=== PATIENT | male | born 1960 | race Caucasian/White ===

== ENCOUNTER 2019-12-18 08:22 | Inpatient (IN) ==
--- OUTSIDE RECORDS SUMMARY | 2019-12-18 08:24 | External Medical Summary | Continuity of Care Document ---
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 EMERSON Ambrocio Quantity: 60 Refills: 3 oxyCODONE-Acetaminophen 5-325 MG Oral Ta blet; TAKE 1 TABLET EVERY 4 HOURS NEEDED FOR PAIN. Ross Quantity: 120 Refills: 0 Procedures History of Uvulectomy Status: Completed History of Sinus Surgery Status: Complet ed History of Bronchoscopy (Diagnostic) Sta tus: Completed History of Uvuloplasty Status: Completed History of Palatopharyngoplasty Status: Completed History of Thoracoscopy (Therapeutic) With Total Pulmonary Status: Completed Decortic History of Thoracotomy Status: Completed Immunizations Immunizations not documented Family History Mother Family history of Colon cancer (153.9) (C18.9) Status: Activ e Family history of cerebrovascular accident (V17.1) (Z82.3) S tatus: Active Father Family history of cerebrovascular accident (V17.1) (Z82.3) S tatus: Active Social History - Smoking Status Ex-smoker Plan of Treatment Planned Observations Planned Goals not documented Results No Known Results Results not documented
--- NOTE | 2019-12-18 08:53 | Emergency Department Note ---
ED Visit Note Patient seen and examined in conjunction with Dr. Quinteros. Please see his note for medical decision making. . Resident Activity Tracking Resident Involvement: Resident Care Provided Care Provided: Adult ED
--- NOTE | 2019-12-18 08:54 | Emergency Department Note ---
History of Present Illness General Chief complaint: Chest Pain Stated complaint: CHEST PAIN Time Seen by Provider: 12/18/19 08:28 Source: patient, RN notes reviewed and old records reviewed Mode of arrival: ambulatory Limitations: no limitations History of Present Illness Provider complaint: Chest pain Onset (ago): day(s) 3 Location: chest Radiation: non-radiation Severity: mild Pain Consistency: + constant Maximum Pain Intensity: 1 Current Pain Intensity: 1 Quality: + aching Relieved By: + immobilization Exacerbated By: + movement Associated symptoms: + denies other symptoms; no chest pain, no diaphoresis, no fever/chills and no nausea/vomiting Treatments prior to arrival: none This is a 59-year-old male who presents emergency department complaining of chest pain. The patient reports he woke up this morning complaining of chest pain. The patient reports he does not normally see a physician however with did go to his doctor on Tuesday over not feeling well. He denies being exposed to the virus. He reports no nausea vomiting or diaphoresis with the chest pain. He points to a pinpoint area on his chest. He has not taken anything for the chest pain today. He reports the chest pain is worse when he sits up. He has no other complaints. The patient does smoke. Home Medications Home Medications Medication Instructions Recorded Confirmed Type aspirin [Aspirin Low Dose] 81 mg PO DAILY 12/18/19 12/18/19 History Allergies Allergy/AdvReac Type Severity Reaction Status Date / Time No Known Allergies Allergy Unverified 12/18/19 08:59 Past Med/Surg History Medical History BPH (benign prostatic hyperplasia) Sleep apnea Surgical History History of thoracotomy 2015 - left thorascopy, left thoracotomy with decortication S/P UPPP (uvulopalatopharyngoplasty) Family History Mother Colorectal cancer Father Stroke Social History Preferred Language: Spanish Communication Ability: Effective Composing Machine Operator Required: No Beliefs That Will Affect Care: None Current Living Situation: Significant Other Other Information That Helps Us Care for You: No Feels Safe at Home: Yes Safety Concerns: Feels Safe At This Time Smoking Status: Current every day smoker Tobacco Type: smokeless tobacco ; Cigarettes Per Day: vaping x 8 years, prior smoker 1.5-2ppd x 25 years ; Do You Dip or Chew Tobacco: No ; Hx Alcohol Use: No Hx Substance Use: No Review of Systems A total of 10 systems reviewed and were otherwise negative Physical Exam Vital Signs Vital Signs - 24 hr 12/18/19 08:25 12/18/19 09:06 12/18/19 09:30 Temperature 36.9 C Temperature Source Oral Pulse Rate 75 62 61 Pulse Rate from SpO2 Sensor 61 62 Respiratory Rate 17 17 16 Respiratory Effort / Characteristics Non-Labored Respiratory Depth Normal Respiratory Pattern Regular Blood Pressure 189/119 H 180/102 H 169/100 H Blood Pressure Mean 142 132 127 Blood Pressure Position Sitting Pulse Oximetry 98 97 96 Oxygen Delivery Method Room Air Room Air Room Air Sepsis Recent Fever Within 48 Hours No Sepsis New/Unexplained Change in Mental Status No Sepsis Action Taken by Nursing No Action Required 12/18/19 09:56 12/18/19 10:02 12/18/19 10:30 Temperature Temperature Source Pulse Rate 72 68 63 Pulse Rate from SpO2 Sensor 67 63 Respiratory Rate 27 H 24 27 H Respiratory Effort / Characteristics Respiratory Depth Respiratory Pattern Blood Pressure 155/105 H 174/102 H 178/101 H Blood Pressure Mean 131 114 113 Blood Pressure Position Pulse Oximetry 96 97 Oxygen Delivery Method Sepsis Recent Fever Within 48 Hours Sepsis New/Unexplained Change in Mental Status Sepsis Action Taken by Nursing VITAL SIGNS - Vital signs and nursing notes were reviewed. GENERAL - 59-year-old appearing stated age who is in no acute distress. Communicates well with provider and answers questions appropriately. SKIN - Without rashes. HEAD - NC/AT. EYES - PERRL with EOMI bilaterally. Sclera anicteric. Palpebral conjunctiva pink and moist with no injection noted. EARS - No deformities of external structures noted on gross examination bilaterally. No pain elicited with palpation of the tragus bilaterally. External auditory canals without discharge or otorrhea. Tympanic membranes pearly arrington without retraction or bulging. No fluid or purulent material visualized behind the TM. Handle of malleus, umbo, cone of light, pars tensa/flaccid all easily visualized. NOSE - Midline and without cyanosis. No epistaxis or purulent drainage noted. Septum midline without deviation or septal hematoma noted. MOUTH/OROPHARYNX - Without perioral cyanosis. Buccal mucosa pink and moist and without leukoplakia. Tongue midline with equal elevation of palate bilaterally. No tonsillar hypertrophy, erythema, or exudates noted. dentition noted. NECK - Neck with FROM. Supple to palpation. lymphadenopathy noted. No nuchal rigidity. LUNGS - Chest wall symmetric without accessory muscle use, intercostals retractions, or central cyanosis. Normal vesicular breath sounds CTA B/L. No wheezes, rales, or rhonchi appreciated. CARDIAC - RRR with S1/S2. No murmur, rubs, or gallops appreciated. ABDOMEN - Abdominal contour without pulsations or visible masses. BS normoactive all four quadrants. No tenderness, palpable masses, hepatosplenomegaly, or ascites noted. EXTREMITIES - No clubbing or peripheral cyanosis. No pretibial edema present. +3/5 radial, posterior tibial, and dorsalis pedis pulses palpated throughout. +5/5 strength noted in UE/LE bilaterally. NEUROLOGIC - Cranial nerves II through XII grossly intact. Sensory intact to light touch throughout. Patellar reflexes +2/4. PSYCH - A&Ox3 and cooperates fully with examiner. Pt is very pleasant and interacts well with examiner. Course Administered Medications Amlodipine Besylate (Norvasc) 5 mg PO Q[facility] [place] Stop: 01/17/20 11:59 Last Admin: 12/18/19 12:54 Dose: 5 mg Documented by: [id number] Heparin Sodium (Porcine) (Heparin Sodium (Porcine)) 5,000 units SQ Q8 [facility] Stop: 01/17/20 13:59 Last Admin: 12/18/19 12:55 Dose: 5,000 units Documented by: [id number] Cosigned by: [id number] Lisinopril (Zestril) 10 mg PO QAM [facility] Stop: 01/17/20 11:59 Last Admin: 12/18/19 12:55 Dose: 10 mg Documented by: [id number] Discontinued Medications Amlodipine Besylate (Norvasc) 5 mg PO NOW ONE Stop: 12/18/19 13:14 Last Admin: 12/18/19 14:04 Dose: 5 mg Documented by: [id number] Aspirin (Aspirin) 324 mg PO NOW STA Stop: 12/18/19 09:46 Last Admin: 05/12/20 09:52 Dose: 324 mg Documented by: [id number] Nitroglycerin (Nitrostat) 0.4 mg SL NOW STA Stop: 12/18/19 09:46 Last Admin: 12/18/19 09:51 Dose: 0.4 mg Documented by: [id number] Medical Decision Making Differential Diagnosis Cardiac ischemia, aortic dissection, pulmonary embolism, pneumothorax, pneumonia, pericarditis, myocarditis, esophageal rupture, GERD, cholecystitis, pancreatitis, musculoskeletal, as well as other pathologies. Medical Records Attestation: I reviewed the patient's medical records. Home Medications Current Medication List: was personally reviewed by me Laboratory Data Attestation: I reviewed the patient's lab results. Result diagrams: 12/18/19 09:06 12/18/19 09:06 Lab Results 12/18/19 12/18/19 12/18/19 Range/Units 09:06 09:06 09:06 WBC 5.87 (4.8-10.8) K/uL RBC 5.08 (4.7-6.1) M/uL Hgb 14.9 (14.0-18.0) g/dL Hct 44.1 (42-52) % MCV 86.8 (80-100) fL MCH 29.3 (25-34) pg MCHC 33.8 (32-36) g/dL RDW Std Deviation 41.2 (36.4-46.3) fL RDW Coeff of Jacek 12.9 (11.5-14.5) % Plt Count 185 (130-400) K/uL MPV 10.0 (7.4-10.4) fL Immature Gran % (Auto) 0.5 % Neut % (Auto) 70.5 % Lymph % (Auto) 15.7 % [place] % (Auto) 10.6 % Eos % (Auto) 2.2 % Baso % (Auto) 0.5 % Immature Gran # (Auto) 0.03 H (0.00-0.02) K/uL Neut # (Auto) 4.14 (1.4-6.5) K/uL Lymph # (Auto) 0.92 L (1.2-3.4) K/uL [place] # (Auto) 0.62 H (0.11-0.59) K/uL Eos # (Auto) 0.13 (0-0.5) K/uL Baso # (Auto) 0.03 (0-0.2) K/uL PT (9.0-12.0) Seconds INR (0.9-1.1) APTT (21.0-31.0) Seconds PTT Ratio D-Dimer (0-500) ug/L FEU Sodium 140 (136-145) mmol/L Potassium 4.1 (3.5-5.1) mmol/L Chloride 108 H (98-107) mmol/L Carbon Dioxide 27 (21-32) mmol/L Anion Gap 6.0 (3-11) BUN 15 (7-18) mg/dl Creatinine 1.13 (0.6-1.4) mg/dl Est Cr Clr Drug Dosing 89.1 ml/min Est GFR ( Amer) 82.0 Est GFR (Non-Af Amer) 70.8 BUN/Creatinine Ratio 13.3 (10-20) Glucose 113 H (70-99) mg/dl Calcium 8.7 (8.5-10.1) mg/dl Total Bilirubin 0.9 (0.2-1) mg/dl AST 16 (15-37) U/L ALT 30 (12-78) U/L Alkaline Phosphatase 90 (45-117) U/L Total Creatine Kinase 228 (39-308) U/L CK-MB (CK-2) 4.0 H (0.5-3.6) ng/ml CK/CKMB % Calc 1.8 (0-3.0) Troponin I 0.136 H* (0-0.045) ng/ml Total Protein 6.6 (6.4-8.2) gm/dl Albumin 3.6 (3.4-5.0) gm/dl Globulin 3.0 (2.5-4.0) gm/dl Albumin/Globulin Ratio 1.2 (0.9-2) Lipase 123 (73-393) U/L TSH (0.300-4.500) uIu/ml 12/18/19 12/18/19 12/18/19 Range/Units 09:06 09:07 09:07 WBC (4.8-10.8) K/uL RBC (4.7-6.1) M/uL Hgb (14.0-18.0) g/dL Hct (42-52) % MCV (80-100) fL MCH (25-34) pg MCHC (32-36) g/dL RDW Std Deviation (36.4-46.3) fL RDW Coeff of Jacek (11.5-14.5) % Plt Count (130-400) K/uL MPV (7.4-10.4) fL Immature Gran % (Auto) % Neut % (Auto) % Lymph % (Auto) % [place] % (Auto) % Eos % (Auto) % Baso % (Auto) % Immature Gran # (Auto) (0.00-0.02) K/uL Neut # (Auto) (1.4-6.5) K/uL Lymph # (Auto) (1.2-3.4) K/uL [place] # (Auto) (0.11-0.59) K/uL Eos # (Auto) (0-0.5) K/uL Baso # (Auto) (0-0.2) K/uL PT 10.9 (9.0-12.0) Seconds INR 1.0 (0.9-1.1) APTT 27.6 (21.0-31.0) Seconds PTT Ratio 1.0 D-Dimer 360 (0-500) ug/L FEU Sodium (136-145) mmol/L Potassium (3.5-5.1) mmol/L Chloride (98-107) mmol/L Carbon Dioxide (21-32) mmol/L Anion Gap (3-11) BUN (7-18) mg/dl Creatinine (0.6-1.4) mg/dl Est Cr Clr Drug Dosing ml/min Est GFR ( Amer) Est GFR (Non-Af Amer) BUN/Creatinine Ratio (10-20) Glucose (70-99) mg/dl Calcium (8.5-10.1) mg/dl Total Bilirubin (0.2-1) mg/dl AST (15-37) U/L ALT (12-78) U/L Alkaline Phosphatase (45-117) U/L Total Creatine Kinase (39-308) U/L CK-MB (CK-2) (0.5-3.6) ng/ml CK/CKMB % Calc (0-3.0) Troponin I (0-0.045) ng/ml Total Protein (6.4-8.2) gm/dl Albumin (3.4-5.0) gm/dl Globulin (2.5-4.0) gm/dl Albumin/Globulin Ratio (0.9-2) Lipase (73-393) U/L TSH 2.190 (0.300-4.500) uIu/ml Imaging Data Radiologist's Impression: [place], [place] [phone] XRay Report Patient: CHAYITO VELARDE Admit Date: 12/18/19 MR#: [id number] Address1: [address] [place] [address] Acct ID:[id number] Address2: Date: 1960 [facility] Zip: [place] [address] Age: 59 Location: ED Sex: M Room/Bed: Att Phy: Diagnosis: CHEST PAIN Amy Phy: PCP,NO Service Date: 12/18/19 Fam Phy: Interpreting Phy: Gaston Ortiz Admit Phy: Ordering Phy: Sharon Gusman MD cc: ~ XR chest 1V portable HISTORY: 59 years-old Male L chest pain acute left-sided chest pain COMPARISON: Chest radiographs 12/25/2014 TECHNIQUE: Portable AP view of the chest FINDINGS: Cardiac silhouette is enlarged, unchanged. Blunting of the left costophrenic angle is suggestive of scarring. No pneumothorax, large pleural effusion, overt pulmonary edema or airspace consolidation typical for pneumonia. Degenerative changes of the shoulders and spine. IMPRESSION: Cardiomegaly without acute process. ACT 112: Negative or not required by law. The above report was generated using voice recognition software. It may contain grammatical, syntax or spelling errors. Electronically signed by: Kevin Ortiz M.D. 12/18/2019 9:19 AM Dictated: 12/18/19917 Transcribed: 12/18/19917 ECG Data Attestation: I personally reviewed and interpreted this ECG as follows: Indication: chest pain Rate (beats per minute): 63 Rhythm: normal sinus Findings: + left axis deviation; no ST depression and no ST elevation Comparison ECG Date: from (12/07/2014) Change: no significant change Blood Pressure Blood Pressure Findings: Elevated blood pressure Blood Pressure Disposition: further management by hospitalist OSEI Patton Patient was seen and evaluated as above in room B7. Review was performed of nursing notes and vital signs. I did review pertinent previous visits and patient history. After obtaining a thorough history and physical examination the above work up was performed. This is a 59-year-old male who presents emergency department complaining of chest pain. The patient's EKG is unchanged from previous. He was noted to be extremely hypertensive here in the emergency department and I suspect has had hypertension for quite some time based on his previous EKG. Laboratory work was obtained including a CBC renal profile. The patient was found to have an elevation in his troponin. He was given aspirin as well as nitro for the pain here in the emergency department. I did discuss his case with the hospitalist service who did agree to admit the patient as well as cardiology. Patient is in agreement with the treatment plan. An order was placed for continuous cardiac monitoring. The monitor shows a rate of 60 with Normal Sinus rhythm. The patient was evaluated during the global COVID-19 pandemic, and that diagnosis was suspected/considered upon their initial presentation. Their evaluation, treatment and testing was consistent with current guidelines for patients who present with complaints or symptoms that may be related to COVID- 19. Impression & Plan Chest pain, Hypertension, Elevated troponin Discharge Plan Visit Data *Final* Discharge Date/Time: 12/18/19 11:07 Chief Complaint: Chest Pain Stated Complaint: CHEST PAIN ED Provider: Ryne Quinteros ED Midlevel Provider: Sharon Gusman Discharge Problem: Chest pain, Hypertension, Elevated troponin Patient Disposition: Admitted As Inpatient Discharge Instructions Interventions: ED Discharge Assessment Last Done: 12/18/19 11:07 Discharge Problem: Chest pain Qualifiers: Chest pain type: unspecified Qualified Code(s): R07.9 - Chest pain, unspecified Hypertension Qualifiers: Hypertension type: unspecified Qualified Code(s): I10 - Essential (primary) hypertension
[2019-12-18 09:14] LABS: Basophils # (auto) 0.03 K/uL (0-0.2); Basophils % (auto) 0.5 %; Eosinophils # (auto) 0.13 K/uL (0-0.5); Eosinophils % (auto) 2.2 %; Hematocrit (blood only) 44.1 % (42-52); Hemoglobin 14.9 g/dL (14.0-18.0); Immature Granulocytes # (auto) 0.03 K/uL (0.00-0.02); Immature Granulocytes % (auto) 0.5 %; Lymphocytes # (auto) 0.92 K/uL (1.2-3.4); Lymphocytes % (auto) 15.7 %; Mean Corpuscular Hemoglobin 29.3 pg (25-34); Mean Corpuscular Hgb Conc 33.8 g/dL (32-36); Mean Corpuscular Volume 86.8 fL (80-100); Monocytes # (auto) 0.62 K/uL (0.11-0.59); Monocytes % (auto) 10.6 %; Neutrophils # (auto) 4.14 K/uL (1.4-6.5); Neutrophils % (auto) 70.5 %; Platelet Count 185 K/uL (130-400); RDW Coefficient of Variation 12.9 % (11.5-14.5); RDW Standard Deviation 41.2 fL (36.4-46.3); Red Blood Count 5.08 M/uL (4.7-6.1); White Blood Count 5.87 K/uL (4.8-10.8)
--- NOTE | 2019-12-18 09:21 | XRay Report ---
XR chest 1V portable HISTORY: 59 years-old Male L chest pain acute left-sided chest pain COMPARISON: Chest radiographs 12/25/2014 TECHNIQUE: Portable AP view of the chest FINDINGS: Cardiac silhouette is enlarged, unchanged. Blunting of the left costophrenic angle is suggestive of s carring. No pneumothorax, large pleural effusion, overt pulmonary edema or airspace consolidation typ ical for pneumonia. Degenerative changes of the shoulders and spine. IMPRESSION: Cardiomegaly without acute process. ACT 112: Negative or not required by law. The above report was generated using voice recognition software. It may contain grammatical, syntax o r spelling errors. Electronically signed by: Kevin Ortiz M.D. 12/18/2019 9:19 AM
[2019-12-18 09:30] LABS: Albumin Level 3.6 gm/dl (3.4-5.0); BUN Creatinine Ratio 13.3 (10-20); Calcium 8.7 mg/dl (8.5-10.1); Creatinine Clr Calc Pharmacy 89.1 ml/min; Est GFR (Non-African American) 70.8; Potassium 4.1 mmol/L (3.5-5.1)
[2019-12-18 09:45] LABS: Albumin Globulin Ratio 1.2 (0.9-2); Bilirubin,Total 0.9 mg/dl (0.2-1); Total Protein 6.6 gm/dl (6.4-8.2); Troponin I 0.136 ng/ml (0-0.045)
[2019-12-18] MEDS ORDERED: NITROGLYCERIN SL 0.4 MG/TAB TAB SL STA (09:45)
[2019-12-18] MEDS ORDERED: ASPIRIN CHEW 324 MG PO STA (09:45)
[2019-12-18 09:59] LABS: Partial Thromboplastin Time 27.6 Seconds (21.0-31.0); Prothrombin Time 10.9 Seconds (9.0-12.0)
--- NOTE | 2019-12-18 11:01 | History & Physical Report ---
Date of Service December 18, 2019 Assessment & Plan (1) Chest pain: Pt is 59 y/o M with PMH BPH presented to ER with complaint of chest pain. Patient states this morning woke up at 5:30 AM he then noticed sharp pain to left chest that is non-radiating, aggravated with ROM. Denies SOB, N/V, diaph oresis. In ER pt afebrile, P: 75, BP: 189/119 down to 156/94, R: 17, 98% on RA. Initial troponin: 0.136. EKG sinus rhythm, rate 63, t wave changes, criteria for LVH, compared to EKG in 2015 without significant change R/O ACS. Risk factors: HTN, obesity, tobacco use. DDX: musculoskeletal etiology, HTN, pleurisy, PE -In ER given ASA 342mg and 1 SL nitro without any change in pain -Monitor Vitals -Will add D-dimer -Repeat EKG in am -Will trend troponin -Echo -TSH pending, lipid panel, A1c in AM -aspirin -Nitro prn CP -Will start BP meds for HTN -Cardiology consult, ER contacted risk control representative who recommended admission (2) HTN (hypertension): Does not follow with PCP regularly. Pt had SBP in 140's at last office visit 12/15/19 and was recommended to have labs and return for BP recheck In ER Pt hypertensive -Will start amlodipine, lisinopril -Monitor BP (3) Sleep apnea: S/P Surgery No further follow up. Pt reports snoring -would recommend out patient follow up for consideration of sleep study DVT Prophylaxis -Heparin SQ Full Code PCP - Dr Jarquin, however does not follow regularly Pt was seen and care coordinated with Dr Amezcua. See addendum History of Present Illness Chief Complaint: CP Primary Care Provider: Dr Jarquin Pt is 59 y/o M with PMH BPH presented to ER with complaint of chest pain. Patient states this morning woke up at 5:30 AM he then noticed sharp pain to left chest. Reports decreased to no pain at rest. Patient states noticed pain with the motion of sitting up or lying down and with rotation and sometimes with deep inspiration. Reports pain is very pinpoint location and is nonradiating. Denies any associated shortness of breath, diaphoresis, nausea, vomiting, palpitations. Pt took ASA 81 mg this morning. Reports drank cup of coffee this morning. Patient reports couple days ago did notice that he was a little bit short of breath when he was doing projects at his house. Has not noticed any shortness of breath with activity prior or since. Denies any history of chest pain or history of cardiac problems or testing in the past. Denies injury/trauma, fever/chills, diaphoresis, N/V/D/C, GORDON, dizziness, syncope, vision changes, neck pain, orthopnea, palpitations, cough, sore throat, choking, otalgia, rhinorrhea, abdominal pain, paresthesias, weakness, extremity weakness, extremity edema, rashes, urinary symptoms. FH: Reports brother had "thin wall" of heart Allergies Allergy/AdvReac Type Severity Reaction Status Date / Time No Known Allergies Allergy Unverified 12/18/19 08:59 Home Medications Home Medications Medication Instructions Recorded Confirmed Type aspirin [Aspirin Low Dose] 81 mg PO DAILY 12/18/19 12/18/19 History Past Med/Surg History Medical History (Updated 12/18/19 @ 15:29 by Diallo Green DO) BPH (benign prostatic hyperplasia) Polysubstance abuse history of alcohol and cocaine use. reportedly clean 15 years Sleep apnea Surgical History History of thoracotomy 2015 - left thorascopy, left thoracotomy with decortication S/P UPPP (uvulopalatopharyngoplasty) Family History Mother Colorectal cancer Father Stroke Social History Preferred Language: Georgian Communication Ability: Effective Director Of Archives Required: No Beliefs That Will Affect Care: None Current Living Situation: Significant Other Other Information That Helps Us Care for You: No Feels Safe at Home: Yes Safety Concerns: Feels Safe At This Time Smoking Status: Current every day smoker Tobacco Type: smokeless tobacco ; Cigarettes Per Day: vaping x 8 years, prior smoker 1.5-2ppd x 25 years ; Do You Dip or Chew Tobacco: No ; Hx Alcohol Use: No Hx Substance Use: No Review of Systems Review of Systems: All systems reviewed & are unremarkable except as noted in HPI & below Physical Exam Physical Exam: General: no distress, obese Head: normocephalic, atraumatic Eyes: PERRL, EOM's intact, conjunctiva non-injected, anicteric ENT: normal inspection external ears, nose, mucous membranes moist Neck: supple, trachea midline Lungs: clear, no respiratory distress, no wheezing/rhonchi/rales CV: RRR, no murmur, no pretibial edema Chest wall: no rashes, +tenderness to palpation left medial pectoralis region Abd: normal BS, soft, non-tender Ext: no cyanosis, no calf tenderness Neuro: A&O x 3, no focal deficits noted, normal affect Skin: warm, dry Results & Data Results & Data ([facility]) Vital Signs (Past 12 Hours) Vital Signs Temp Pulse Resp BP Pulse Ox 12/18/19 09:30 61 16 169/100 H 96 12/18/19 09:06 62 17 180/102 H 97 12/18/19 08:25 36.9 C 75 17 189/119 H 98 Laboratory Results Short CBC 12/18/19 Range/Units 09:06 WBC 5.87 (4.8-10.8) K/uL Hgb 14.9 (14.0-18.0) g/dL Hct 44.1 (42-52) % Plt Count 185 (130-400) K/uL BMP 12/18/19 09:06 Sodium 140 Potassium 4.1 Chloride 108 H Carbon Dioxide 27 BUN 15 Creatinine 1.13 Glucose 113 H Calcium 8.7 Cardiac Enzymes 12/18/19 12/18/19 Range/Units 09:06 09:06 Total Creatine Kinase 228 (39-308) U/L CK-MB (CK-2) 4.0 H (0.5-3.6) ng/ml Troponin I 0.136 H* (0-0.045) ng/ml Liver Function 12/18/19 Range/Units 09:06 Total Bilirubin 0.9 (0.2-1) mg/dl AST 16 (15-37) U/L ALT 30 (12-78) U/L Alkaline Phosphatase 90 (45-117) U/L Albumin 3.6 (3.4-5.0) gm/dl Diagnostic Findings CXR: IMPRESSION: Cardiomegaly without acute process. Code Status & VTE Plan VTE Prophylaxis Plan VTE Prophylaxis will be ordered: Yes Supervising Physician Co-Signing Physician Notes Patient is a 59-year-old male with H/O tension headache, BPH, tobacco use disorder and ?WOODY is with history of left-sided sharp chest pain which increases with respiration, movement. Reports having dyspnea on exertion 2 days ago. Noted to have elevated blood pressure while in ED. CT chest showed cardiomegaly with fusiform dilatation of the ascending thoracic aorta, pleural parenchymal scarring of the left total left lung base. Echo is currently pending. Troponin mild elevation noted. TSH within normal limits. On exam patient is moderately built and nourished, no apparent distress, normocephalic atraumatic, lungs are clear to auscultation, S1-S2, no murmur, abdomen soft nontender, no pedal edema, grossly no focal neurological deficits. Patient is admitted for management of atypical chest pain. D-dimer is negative. Echo, lipid panel, HbA1c pending. Elevated troponin noted in setting of hypertensive urgency. Started on amlodipine, lisinopril and nitroglycerin for blood pressure control. Appreciate cardiology input. Plan for cardiac catheterization in the morning. Counseled to quit smoking. Advised to get sleep study as outpatient. N.p.o. after midnight. I personally reviewed the record. Patient is interviewed and examined at bedside. Patient's care is coordinated with Chuyita Li PA-C. Please refer to the documentation above for details of patient's presentation and for discussion of other issues.
[2019-12-18] MEDS ORDERED: ACETAMINOPHEN 325 MG TAB PO PRN (11:37)
[2019-12-18 11:41] LABS: D Dimer 360 ug/L FEU (0-500)
[2019-12-18] MEDS ORDERED: NITROGLYCERIN SL 0.4 MG/TAB TAB SL PRN (11:56)
[2019-12-18] MEDS ORDERED: lisinopriL 10 MG TAB PO SCH (12:00)
[2019-12-18] MEDS ORDERED: AMLODIPINE BESYLATE 5 MG TAB PO SCH (12:00)
[2019-12-18] MEDS: HEPARIN SOD 5,000 UNIT/0.5 ML VIAL SQ SCH ×2 (12:55→21:35)
--- NOTE | 2019-12-18 13:02 | CT Scan Report ---
CT chest wo con CT DOSE: 655.38 mGy.cm CLINICAL HISTORY: 59 years-old Male with CP. Acute atypical chest pain TECHNIQUE: Multiaxial CT images of the chest were performed without contrast. A dose lowering techni que was utilized adhering to the principles of ALARA. COMPARISON: Chest radiograph of same day, CTA chest 12/07/2014 FINDINGS: Unremarkable thyroid. There is no adenopathy by CT size criteria. Mild cardiomegaly. No pericardial e ffusion. Coronary artery and aortic annular calcifications. Fusiform dilation of the ascending thorac ic aorta, 5.0 x 5.0 cm which was previously measured at approximately 4.7 x 4.7 cm on comparison. No evidence of aneurysm rupture. Unopacified pulmonary artery is unremarkable. There is no pneumothorax, pleural effusion, airspace consolidation or overt pulmonary edema. Mild ple ural parenchymal scarring with atelectasis of the anterolateral left lung base. There are no suspicio us pulmonary nodules or masses. Likely benign 3 mm subpleural solid nodule of the right upper lobe is unchanged. The central airways appear patent. No acute process of the imaged upper abdomen. 4 mm lef t hepatic lobe hypodensity is too small to characterize. Bones appear intact. IMPRESSION: 1. No acute intrathoracic abnormality. 2. Cardiomegaly with fusiform dilation of the ascending thoracic aorta, 5.0 x 5.0 cm which has mildly increased in size from 2015 3. Pleural parenchymal scarring of the lateral left lung base. 4. Coronary artery calcifications. ACT 112: Negative or not required by law. Electronically signed by: Kevin Ortiz M.D. 12/18/2019 1:01 PM
[2019-12-18] MEDS ORDERED: AMLODIPINE BESYLATE 5 MG TAB PO ONE (13:13)
[2019-12-18 14:28] LABS: Appearance Urine Clear (Clear); Bilirubin Urine Negative (Negative); Blood Urine Negative (Negative); Color Urine Yellow; Glucose Urine UA Negative (Negative); Ketones Urine Negative (Negative); Leukocyte Esterase Urine Negative (Negative); Nitrite Urine Negative (Negative); Protein Urine Negative (Negative); Urobilinogen Urine Negative (Negative)
--- NOTE | 2019-12-18 15:35 | Cardiology Consultation ---
Date of Consultation December 18, 2019 Assessment & Plan (1) Chest pain: atypical, appears to be left 5th rib stuck in exhalation on exam however, given trop elevation along with ascending aortic aneurysm of 5 cm that will likely require surgical intervention, will proceed with cardiac cath options and alternatives discussed, patient states that he understands and agrees with plan npo after midnight (2) Elevated troponin: for cardiac cath in AM (3) Hypertension: (4) Ascending aortic aneurysm: pathophysiology, risk and treatment options reviewed will require CT surgery eval, nonemergently given size if significant CAD observed on cath may require combined surgery will need tight bp control currently, would prefer sbp remain below 140 at least received a total of amlodipine 10mg so far will give nitro paste at this time may start lisinopril today as well if necessary (5) Abdominal bruit: check aaa screnn (6) Tobacco abuse: (7) Polysubstance abuse: (8) WOODY (obstructive sleep apnea): sleep medicine eval as outpatient will also check nocturnal pulse ox tonight (9) CAD (coronary artery disease): I personally reviewed his ct films, limited windows but calcifications involving the left main into the LAD were observed obviously, cannot quantify in this imaging modality, for cath History of Present Illness Reason for Consultation: Chest pain Requesting Physician: Dr. Amezcua Attending Physician: Rob Amezcua MD History of Present Illness It was my pleasure to see Mr. Cartwright in consultation today December 18, 2019. He is a very pleasant 59-year-old gentleman who does not seek regular medical care. He presented to [facility] on 12/18/2019 with complaints of chest pain. Patient states he woke up at approximately 5 AM this morning and noticed left-sided chest pain. He described as sharp and stabbing in nature and very p inpoint along his left sternal border. He got up and went about his morning and the discomfort continue to wax and wane. He got to work and at that time his coworkers convinced him to seek medical attention. Upon arrival to the emergency department he was found to be hypertensive and given amlodipine and admitted to telemetry. I reviewed the case with the admitting team after the patient also complained of shortness of breath and I recommended a CT of the chest without contrast be performed given his longstanding history of vaping. Upon arrival to telemetry he remained hypertensive and received another dose of amlodipine without any significant improvement. He states that the pain continues to wax and wane and is now worse with movement. Upon further questioning, he states that he is been having some dyspnea on exertion for the last 2 weeks that he is been noticing but no other episodes of chest pain. Past medical history: 1. Family history of a younger brother with an ascending thoracic aortic aneurysm requiring surgical repair 2. Longstanding tobacco abuse 3. History of polysubstance abuse including alcohol and cocaine in remission for 15 years. 4. History of obstructive sleep apnea status post uvuloplasty Allergies Allergy/AdvReac Type Severity Reaction Status Date / Time No Known Allergies Allergy Unverified 12/18/19 08:59 Home Medications Home Medications Medication Instructions Recorded Confirmed Type aspirin [Aspirin Low Dose] 81 mg PO DAILY 12/18/19 12/18/19 History Patient History Medical History (Updated 12/18/19 @ 15:29 by Diallo Green DO) BPH (benign prostatic hyperplasia) Polysubstance abuse history of alcohol and cocaine use. reportedly clean 15 years Sleep apnea Surgical History History of thoracotomy 2015 - left thorascopy, left thoracotomy with decortication S/P UPPP (uvulopalatopharyngoplasty) Family History Mother Colorectal cancer Father Stroke Social History Preferred Language: Liberian Communication Ability: Effective Devulcanizer Head Required: No Beliefs That Will Affect Care: None Current Living Situation: Significant Other Other Information That Helps Us Care for You: No Feels Safe at Home: Yes Safety Concerns: Feels Safe At This Time Smoking Status: Current every day smoker Tobacco Type: smokeless tobacco ; Cigarettes Per Day: vaping x 8 years, prior smoker 1.5-2ppd x 25 years ; Do You Dip or Chew Tobacco: No ; Hx Alcohol Use: No Hx Substance Use: No Review of Systems Review of Systems: All systems reviewed & are unremarkable except as noted in HPI & below Physical Exam Physical Exam: General: Awake, alert and oriented x 3. No acute distress. HEENT: Normocephalic, atraumatic. Pupils equal, round and reactive to light and accommodation. Extraocular muscles are intact. Anicteric sclera. Moist mucous membranes. Neck: No JVD. No bruit. Cardiovascular: Regular. Positive S-4. Normal S-1 and S-2. No S-3. 3/6 mid to late systolic ejection murmur, greatest at the right sternal border, second intercostal space with radiation to the bilateral carotids. No rubs. Pulmonary: Clear to auscultation bilaterally. No rales, rhonchi, or wheezing. Abdomen: Bowel sounds x 4, soft. No rebound, guarding or tenderness. No organomegaly. An abdominal bruit is palpated. Extremities: No clubbing, cyanosis or edema. +2 pedal pulses bilaterally. Skin: Warm and dry. Results & Data ([facility]) Vital Signs (Past 12 Hours) Vital Signs Temp Pulse Pulse Resp BP Pulse Ox 12/18/19 14:07 60 17 172/95 H 98 12/18/19 12:00 61 14 12/18/19 11:49 58 L 12/18/19 11:46 36.8 C 12/18/19 11:25 64 22 179/107 H 97 12/18/19 11:00 61 32 H 156/94 H 98 12/18/19 10:30 63 27 H 178/101 H 97 12/18/19 10:02 68 24 174/102 H 96 12/18/19 09:56 72 27 H 155/105 H 12/18/19 09:30 61 16 169/100 H 96 12/18/19 09:06 62 17 180/102 H 97 12/18/19 08:25 36.9 C 75 17 189/119 H 98 Laboratory Results Laboratory Results - last 24 hr 12/18/19 12/18/19 12/18/19 09:06 09:06 09:06 WBC 5.87 RBC 5.08 Hgb 14.9 Hct 44.1 MCV 86.8 MCH 29.3 MCHC 33.8 RDW Std Deviation 41.2 RDW Coeff of Jacek 12.9 Plt Count 185 MPV 10.0 Immature Gran % (Auto) 0.5 Neut % (Auto) 70.5 Lymph % (Auto) 15.7 Fajardo % (Auto) 10.6 Eos % (Auto) 2.2 Baso % (Auto) 0.5 Immature Gran # (Auto) 0.03 H Neut # (Auto) 4.14 Lymph # (Auto) 0.92 L Fajardo # (Auto) 0.62 H Eos # (Auto) 0.13 Baso # (Auto) 0.03 PT INR APTT PTT Ratio D-Dimer Sodium 140 Potassium 4.1 Chloride 108 H Carbon Dioxide 27 Anion Gap 6.0 BUN 15 Creatinine 1.13 Est Cr Clr Drug Dosing 89.1 Est GFR ( Amer) 82.0 Est GFR (Non-Af Amer) 70.8 BUN/Creatinine Ratio 13.3 Glucose 113 H Calcium 8.7 Total Bilirubin 0.9 AST 16 ALT 30 Alkaline Phosphatase 90 Total Creatine Kinase 228 CK-MB (CK-2) 4.0 H CK/CKMB % Calc 1.8 Troponin I 0.136 H* Total Protein 6.6 Albumin 3.6 Globulin 3.0 Albumin/Globulin Ratio 1.2 Lipase 123 TSH Urine Color Urine Appearance Urine pH Ur Specific [place] Urine Protein Urine Glucose (UA) Urine Ketones Urine Blood Urine Nitrite Urine Bilirubin Urine Urobilinogen Ur Leukocyte Esterase 12/18/19 12/18/19 12/18/19 09:06 09:07 09:07 WBC RBC Hgb Hct MCV MCH MCHC RDW Std Deviation RDW Coeff of Jacek Plt Count MPV Immature Gran % (Auto) Neut % (Auto) Lymph % (Auto) [place] % (Auto) Eos % (Auto) Baso % (Auto) Immature Gran # (Auto) Neut # (Auto) Lymph # (Auto) [place]ardo # (Auto) Eos # (Auto) Baso # (Auto) PT 10.9 INR 1.0 APTT 27.6 PTT Ratio 1.0 D-Dimer 360 Sodium Potassium Chloride Carbon Dioxide Anion Gap BUN Creatinine Est Cr Clr Drug Dosing Est GFR ( Amer) Est GFR (Non-Af Amer) BUN/Creatinine Ratio Glucose Calcium Total Bilirubin AST ALT Alkaline Phosphatase Total Creatine Kinase CK-MB (CK-2) CK/CKMB % Calc Troponin I Total Protein Albumin Globulin Albumin/Globulin Ratio Lipase TSH 2.190 Urine Color Urine Appearance Urine pH Ur Specific [place] Urine Protein Urine Glucose (UA) Urine Ketones Urine Blood Urine Nitrite Urine Bilirubin Urine Urobilinogen Ur Leukocyte Esterase 12/18/19 12/18/19 14:05 14:59 WBC RBC Hgb Hct MCV MCH MCHC RDW Std Deviation RDW Coeff of Jacek Plt Count MPV Immature Gran % (Auto) Neut % (Auto) Lymph % (Auto) [place] % (Auto) Eos % (Auto) Baso % (Auto) Immature Gran # (Auto) Neut # (Auto) Lymph # (Auto) [place] # (Auto) Eos # (Auto) Baso # (Auto) PT INR APTT PTT Ratio D-Dimer Sodium Potassium Chloride Carbon Dioxide Anion Gap BUN Creatinine Est Cr Clr Drug Dosing Est GFR ( Amer) Est GFR (Non-Af Amer) BUN/Creatinine Ratio Glucose Calcium Total Bilirubin AST ALT Alkaline Phosphatase Total Creatine Kinase CK-MB (CK-2) CK/CKMB % Calc Troponin I 0.097 H* Total Protein Albumin Globulin Albumin/Globulin Ratio Lipase TSH Urine Color Yellow Urine Appearance Clear Urine pH 6.0 Ur Specific [place] 1.020 Urine Protein Negative Urine Glucose (UA) Negative Urine Ketones Negative Urine Blood Negative Urine Nitrite Negative Urine Bilirubin Negative Urine Urobilinogen Negative Ur Leukocyte Esterase Negative Medications Administered Current Inpatient Medications Acetaminophen (Tylenol) 650 mg PO Q4H PRN PRN Reason: Pain or Fever Stop: 01/17/20 11:36 Amlodip[facility] Bes[facility] ([facility]asc) [facility] Stop: 01/17/20 11:59 Last Admin: 12/18/19 12:54 Dose: 5 mg Documented by: Aspirin (Ecotrin Ectab) 81 mg PO DAILY [facility] Stop: 01/18/20 08:59 Heparin Sodium (Porcine) (Heparin Sodium (Porcine)) 5,000 units SQ Q8 [facility] Stop: 01/17/20 13:59 Last Admin: 12/18/19 12:55 Dose: 5,000 units Documented by: Lisinopril (Zestril) 10 mg PO QAM [facility] Stop: 01/17/20 11:59 Last Admin: 12/18/19 12:55 Dose: 10 mg Documented by: Lisinopril (Zestril) 20 mg PO NOW ONE Stop: 12/18/19 19:01 Nitroglycerin (Nitrostat) 0.4 mg SL PRN PRN PRN Reason: Chest Pain Stop: 01/17/20 11:55 Nitroglycerin (Nitro-Bid 2%) 1 inch EXT Q6H [facility] Stop: 01/17/20 15:44 Last Admin: 12/18/19 16:15 Dose: 1 inch Documented by: (1) Chest pain Chest pain type: unspecified Qualified Code(s): R07.9 - Chest pain, unspecified (2) Hypertension Hypertension type: unspecified Qualified Code(s): I10 - Essential (primary) hypertension
[2019-12-18] MEDS ORDERED: ENALAPRILAT 1.25 MG in DEXTROSE 5% 25 ML IV STA (15:36)
[2019-12-18] MEDS: NITROGLYCERIN 2% OINTMENT 30GM TUBE EXT SCH ×2 (16:15→20:29)
[2019-12-18] MEDS ORDERED: lisinopriL 20 MG TAB PO ONE (19:30)
[2019-12-19] MEDS: NITROGLYCERIN 2% OINTMENT 30GM TUBE EXT SCH ×3 (03:43→16:34)
[2019-12-19] MEDS: HEPARIN SOD 5,000 UNIT/0.5 ML VIAL SQ SCH ×2 (05:55→14:59)
--- NOTE | 2019-12-19 07:10 | Ultrasound Report ---
US AAA screening HISTORY: 59 years-old Male AAA screening screening study in a patient with thoracic aortic aneurysm. COMPARISON: Chest CT 12/18/2019 TECHNIQUE: Multiple real-time sonographic images of the abdominal aorta were obtained assessing janell maxwell appearance, color and spectral flow FINDINGS: Proximal abdominal aorta measures 2.7 x 2.8 cm and is suboptimally visualized secondary to obscuring bowel gas. The mid abdominal aorta measures 2.2 x 2.1 cm. Distal abdominal aorta measures 1.6 x 1.6 c m. Normal plug flow of the abdominal aorta. Bilateral common iliac arteries appear normal. No signifi cant atherosclerotic plaque identified. IMPRESSION: No abdominal aortic aneurysm. ACT 112: Negative or not required by law. The above report was generated using voice recognition software. It may contain grammatical, syntax o r spelling errors. Electronically signed by: Kevin Ortiz M.D. 12/19/2019 7:09 AM
[2019-12-19 07:17] LABS: Hematocrit (blood only) 43.9 % (42-52); Hemoglobin 14.8 g/dL (14.0-18.0); Mean Corpuscular Hemoglobin 29.3 pg (25-34); Mean Corpuscular Hgb Conc 33.7 g/dL (32-36); Mean Corpuscular Volume 86.9 fL (80-100); Mean Platelet Volume 9.9 fL (7.4-10.4); Platelet Count 191 K/uL (130-400); RDW Coefficient of Variation 13.2 % (11.5-14.5); RDW Standard Deviation 41.9 fL (36.4-46.3); Red Blood Count 5.05 M/uL (4.7-6.1); White Blood Count 9.27 K/uL (4.8-10.8)
[2019-12-19 07:48] LABS: BUN Creatinine Ratio 14.3 (10-20); Calcium 8.6 mg/dl (8.5-10.1); Creatinine Clr Calc Pharmacy 76.9 ml/min; Est GFR (African American) 69.9; Est GFR (Non-African American) 60.3; Potassium 3.9 mmol/L (3.5-5.1)
[2019-12-19 08:56] LABS: Estimated Average Glucose 117 mg/dl; Hemoglobin A1C 5.7 % (4.5-5.6)
[2019-12-19] MEDS ORDERED: ASPIRIN 81 MG ECTAB PO SCH (09:00)
[2019-12-19] MEDS ORDERED: lisinopriL 20 MG TAB PO SCH (09:00)
[2019-12-19] MEDS ORDERED: AMLODIPINE BESYLATE 5 MG TAB PO SCH (09:00)
[2019-12-19] MEDS ORDERED: NiCARDipine HCL INJ 2.5 MG/ML 10 ML AMP ONE (10:43)
[2019-12-19] MEDS ORDERED: fentaNYL citrate 100 MCG/2 ML VIAL ONE (10:43)
[2019-12-19] MEDS ORDERED: MIDAZOLAM HCL 1 MG/ML 2ML VIAL ONE (10:43)
[2019-12-19] MEDS ORDERED: HEPARIN (PORCINE) 1000 UNIT/ML 10 ML (CATH LAB USE ONLY) ONE (10:43)
[2019-12-19] MEDS ORDERED: NITROGLYCERIN/D5W 100MCG/ML 20ML SYR ONE (10:43)
[2019-12-19] MEDS ORDERED: ATROPINE SULFATE 0.1 MG/ML 10ML SYR IV PRN (11:29)
[2019-12-19] MEDS ORDERED: ONDANSETRON INJ 2 MG/ML 2 ML VIAL IV PRN (11:29)
[2019-12-19] MEDS ORDERED: ACETAMINOPHEN 325 MG TAB PO PRN (11:29)
[2019-12-19] MEDS ORDERED: SODIUM CHLORIDE 0.9% 500 ML IV PRN (11:29)
[2019-12-19] MEDS ORDERED: SODIUM CHLORIDE 0.9% 1000ML 1,000 ML IV SCH ×2 (11:30→12:00)
--- NOTE | 2019-12-19 11:42 | Cardiac Catheterization ---
Date of Service December 19, 2019 Cardiac Cath Report Cardiac Cath Report Procedure: 1. Coronary angiography History: This is a 59-year-old male patient who presented and was admitted to the hospital with chest pain. On CT of the chest he has a dilated a sending aorta and it was felt that he should have a cardiac catheterization to exclude significant coronary artery disease. Procedure summary: After informed consent was obtained the patient was taken to cardiac catheterization lab where access was obtained using a retrograde cylinder technique from the right radial artery. Preformed 5 Hungarian diagnostic catheters were utilized for the coronary angiograms. Following the procedure the patient was returned to his room in stable condition. ACC data: Start time 10:57 AM End time 11:21 AM Opening aortic pressure 119/77 Closing aortic pressure 125/80 LV pressurevalve not crossed Sedation 2 mg intravenous Versed IV fluid 42 cc normal saline Contrast 110 cc Optiray Fluoroscopy time 6.8 minutes Radiation 1627 mGy DAP 159.4 Right dominant system AUC score 7 Coronary angiography selective injections of the left coronary artery revealed the left main trunk to be widely patent. There is a large ramus branch which is equally as big as the LAD arising from the left main trunk and is widely patent. The LAD is widely patent. The left circumflex artery consists of a high marginal branch which is large and widely patent. The left circumflex artery continues through the AV groove to a second smaller marginal branch which is widely patent. The right coronary artery is large and hyperdominant. The right coronary artery is widely patent. Summary: Widely patent and normal coronary arteries.
--- NOTE | 2019-12-19 14:29 | Cardiology Progress Note ---
Date of Service December 19, 2019 Assessment & Plan (1) Chest pain: atypical, appears to be left 5th rib stuck in exhalation on exam Cardiac cath unremarkable (2) Elevated troponin: Likely due to myocardial strain with hypertensive urgency (3) Hypertension: The need for strict BP control was reviewed with him. He is tolerating his current regimen of amlodipine and lisinopril well and should be continued as an outpatient. I have asked him to obtain a home BP cuff and keep a daily diary for 1 week and then notify me via my [facility] with his readings. I will then see him in follow-up as an outpatient in 1 month for continued BP control. (4) Ascending aortic aneurysm: pathophysiology, risk and treatment options reviewed once again. Given the fact that there is no significant obstructive coronary artery disease I believe the most prudent course of action at this point would be to discharge the patient to home and evaluated by cardiothoracic surgery as an outpatient, my office will facilitate this. (5) Abdominal bruit: Ultrasound negative (6) Tobacco abuse: (7) Polysubstance abuse: (8) WOODY (obstructive sleep apnea): Nocturnal pulse ox unremarkable. (9) CAD (coronary artery disease): Absolutely no coronary disease by cardiac catheterization. CT interpretation was likely due to artifact from calcification of his bicuspid aortic valve (10) Bicuspid aortic valve: Present but functioning appropriately. There is some significant calcification on the valve and I do believe he would benefit from statin therapy, however, will hold off on initiation at this time given the fact he will be started a new medical regimen. Follow-up as an outpatient. Subjective Patient seen and examined, medical records reviewed. Patient tolerated cardiac catheterization well and no coronary disease was found. Currently feels well denies any cardiac complaints of chest pain, shortness of breath, palpitations, lightheadedness, dizziness or syncope. He did discuss his family history and 2 of his 3 other brothers have had aortic aneurysms as well. Telemetry reviewed: Normal sinus rhythm without arrhythmia or significant ectopy. Review of Systems Review of Systems: All systems reviewed & are unremarkable except as noted in HPI & below Physical Exam Physical Exam: General: Awake, alert and oriented x 3. No acute distress. HEENT: Normocephalic, atraumatic. Pupils equal, round and reactive to light and accommodation. Extraocular muscles are intact. Anicteric sclera. Moist mucous membranes. Neck: No JVD. No bruit. Cardiovascular: Regular. Positive S-4. Normal S-1 and S-2. No S-3. No murmurs or rubs. Pulmonary: Clear to auscultation B/L. No rales, rhonchi or wheezing Abdomen: Bowel sounds x 4, soft. No rebound, guarding or tenderness. No organomegaly. Extremities: No clubbing, cyanosis or edema. +2 pedal pulses bilaterally. Skin: Warm and dry. Results & Data Vital Signs (Past 12 Hours) Vital Signs Temp Pulse Pulse Pulse Pulse Resp BP 12/19/19 13:44 63 18 122/76 12/19/19 13:15 63 18 129/75 12/19/19 12:45 72 20 120/66 12/19/19 12:15 66 18 121/76 12/19/19 12:00 36.4 C L 64 18 132/75 12/19/19 11:45 67 18 134/76 12/19/19 11:30 67 18 136/74 12/19/19 10:00 66 18 143/91 H 12/19/19 08:20 77 12/19/19 07:45 36.7 C 58 L 16 142/83 H 12/19/19 03:48 36.7 C 62 18 127/76 12/19/19 03:38 58 L Pulse Ox Pulse Ox 12/19/19 13:44 96 12/19/19 13:15 95 12/19/19 12:45 94 12/19/19 12:15 95 12/19/19 12:00 97 12/19/19 11:45 97 12/19/19 11:30 97 12/19/19 10:00 97 12/19/19 08:20 12/19/19 07:45 97 12/19/19 03:48 97 12/19/19 03:38 89 L (1) Chest pain Chest pain type: unspecified Qualified Code(s): R07.9 - Chest pain, unspecified (2) Hypertension Hypertension type: unspecified Qualified Code(s): I10 - Essential (primary) hypertension
--- NOTE | 2019-12-19 15:52 | Discharge Summary ---
Date of Service December 19, 2019 Admission HPI Per Admitting Provider Pt is 59 y/o M with PMH BPH presented to ER with complaint of chest pain. Patient states this morning woke up at 5:30 AM he then noticed sharp pain to left chest. Reports decreased to no pain at rest. Patient states noticed pain with the motion of sitting up or lying down and with rotation and sometimes with deep inspiration. Reports pain is very pinpoint location and is nonradiating. Denies any associated shortness of breath, diaphoresis, nausea, vomiting, palpitations. Pt took ASA 81 mg this morning. Reports drank cup of coffee this morning. Patient reports couple days ago did notice that he was a little bit short of breath when he was doing projects at his house. Has not noticed any shortness of breath with activity prior or since. Denies any history of chest pain or history of cardiac problems or testing in the past. Denies injury/trauma, fever/chills, diaphoresis, N/V/D/C, GORDON, dizziness, syncope, vision changes, neck pain, orthopnea, palpitations, cough, sore throat, choking, otalgia, rhinorrhea, abdominal pain, paresthesias, weakness, extremity weakness, extremity edema, rashes, urinary symptoms. FH: Reports brother had "thin wall" of heart Admission Exam Per Admitting Provider General: no distress, obese Head: normocephalic, atraumatic Eyes: PERRL, EOM's intact, conjunctiva non-injected, anicteric ENT: normal inspection external ears, nose, mucous membranes moist Neck: supple, trachea midline Lungs: clear, no respiratory distress, no wheezing/rhonchi/rales CV: RRR, no murmur, no pretibial edema Chest wall: no rashes, +tenderness to palpation left medial pectoralis region Abd: normal BS, soft, non-tender Ext: no cyanosis, no calf tenderness Neuro: A&O x 3, no focal deficits noted, normal affect Skin: warm, dry Principal Diagnosis Chest pain Ascending thoracic aortic aneurysm Hypertension Discharge Exam Constitutional well developed; no acute distress Eyes PERRL, conjunctivae normal, anicteric sclerae ENMT external ear and nose normal, oropharynx normal Respiratory normal respiratory effort, lungs clear to auscultation Cardiovascular Rate/Rhythm: regular rate and regular rhythm Heart Sounds: normal S1 and normal S2 Extremities: no edema Gastrointestinal (Abdomen) normal bowel sounds, soft, nontender, no hepatosplenomegaly Neurologic PERRL, EOMI, accommodation nl, no face palsy, no dysarthria Psychiatric A+Ox3, euthymic affect Discharge Data Allergies Allergy/AdvReac Type Severity Reaction Status Date / Time No Known Allergies Allergy Unverified 12/18/19 08:59 Consultations 12/18/19 09:53 Consult Cardiology Stat ED Decision to Admit Stat 12/18/19 11:37 Consult Cardiology Routine 12/19/19 08:00 Consult Cardiac Catheterization Routine Procedures Performed Operation Date: 12/19/19 10:00 Actual Procedures p Cath, Left with Cors and Vent - Tramaine Treadwell DO sCoronary angiography selective injections of the left coronary artery revealed the left main trunk to be widely patent. There is a large ramus branch which is equally as big as the LAD arising from the left main trunk and is widely patent. The LAD is widely patent. The left circumflex artery consists of a high marginal branch which is large and widely patent. The left circumflex artery continues through the AV groove to a second smaller marginal branch which is widely patent. The right coronary artery is large and hyperdominant. The right coronary artery is widely patent. Summary: Widely patent and normal coronary arteries. Cineradiography w/Routine Exam - Tramaine Treadwell DO Ordered Studies 12/18/19 12:15 CT chest without contrast [CT chest wo con] Urgent FINDINGS: Unremarkable thyroid. There is no adenopathy by CT size criteria. Mild cardiomegaly. No pericardial effusion. Coronary artery and aortic annular calcifications. Fusiform dilation of the ascending thoracic aorta, 5.0 x 5.0 cm which was previously measured at approximately 4.7 x 4.7 cm on comparison. No evidence of aneurysm rupture. Unopacified pulmonary artery is unremarkable. There is no pneumothorax, pleural effusion, airspace consolidation or overt pulmonary edema. Mild pleural parenchymal scarring with atelectasis of the anterolateral left lung base. There are no suspicious pulmonary nodules or masses. Likely benign 3 mm subpleural solid nodule of the right upper lobe is unchanged. The central airways appear patent. No acute process of the imaged upper abdomen. 4 mm left hepatic lobe hypodensity is too small to characterize. Bones appear intact. IMPRESSION: 1. No acute intrathoracic abnormality. 2. Cardiomegaly with fusiform dilation of the ascending thoracic aorta, 5.0 x 5.0 cm which has mildly increased in size from 2015 3. Pleural parenchymal scarring of the lateral left lung base. 4. Coronary artery calcifications. 12/19/19 06:39 CL Cath Imgs for PACS use only Routine 12/19/19 16:34 US AAA screening Routine FINDINGS: Proximal abdominal aorta measures 2.7 x 2.8 cm and is suboptimally visualized secondary to obscuring bowel gas. The mid abdominal aorta measures 2.2 x 2.1 cm. Distal abdominal aorta measures 1.6 x 1.6 cm. Normal plug flow of the abdominal aorta. Bilateral common iliac arteries appear normal. No significant atherosclerotic plaque identified. IMPRESSION: No abdominal aortic aneurysm Hospital Course (1) Chest pain: 59 y/o M with PMH BPH presented to ER with complaint of chest pain In ER pt afebrile, P: 75, BP: 189/119 down to 156/94, R: 17, 98% on RA. Initial troponin was 0.136 and trended down. EKG sinus rhythm, rate 63, T wave changes, criteria for LVH, compared to EKG in 2015 without significant change DDX: musculoskeletal etiology, pleurisy In ER, he was given ASA 342mg and 1 SL nitro without any change in pain D Dimer was within normal range at 360 ug/L A1c was 5.7 (prediabetic range) Lipid panel within normal range (2) Ascending aortic aneurysm: Cardiomegaly with fusiform dilation of the ascending thoracic aorta 5.0 x 5.0 cm Counselled patient extensively on need to quit smoking. He reported he will quit. He reports family history of aortic aneurysm in both brothers. Discussed plans with [employer] [employer] Dr Green. He stated he will set patient up with Cardiothoracic surgery and Cardiology follow up for continued management of this Counselled extensively on need for adequate hypertension control (3) HTN (hypertension): Does not follow with PCP regularly. Pt had SBP in 140's at last office visit 12/15/19 and was recommended to have labs and return for BP recheck Started on amlodipine and lisinopril BP is better controlled Patient counselled on need for proper BP control (4) Sleep apnea: S/P Surgery No further follow up. Pt reports snoring Recommend out patient follow up for consideration of sleep study Needs to follow up with PCP about this Total Time Total Time Spent Total Time Spent (In Minutes): 35 Total Time Includes: Examination of the Patient, Discharge Planning and Medication Reconciliation Discharge Plan Discharge Items Patient Disposition: Home - Self-Care Reason For Visit: CP Discharge Diagnosis: Chest pain Ascending thoracic aortic aneurysm Hypertension Condition on Discharge: Good Activity: Per Instructions section Non-emergency contact: Primary Care Provider, Surgeon and [employer] Call non-emergency contact if: you have any medication questions and your symptoms worsen Follow-up/Referrals: Galo Jarquin DO [Outside Practitioners] - 12/24/19 10:25 am () Diet: Heart Healthy Addtl Attending Provider Instructions: Mr Morales You came to the hospital complaining of chest pain. You had extensive evaluation with blood tests, CT scan and Cardiac catheterization. This showed you have an ascending thoracic aortic aneurysm. You also have hypertension. You were started on blood pressure medications. It is very important that you follow up with Cardiothoracic surgery promptly for further management of the aneurysm. It is also very important that you follow up with a Primary Doctor and [employer] [employer] for management of all your medical problems. Please ensure you take your blood pressure medications. Keep a BP log as we discussed. It is very important you quit smoking completely as we discussed as well. It was a pleasure taking care of you Pending Studies at Discharge: No Stand-Alone Forms: My [facility], Smoking Cessation Medications and DC Order Prescriptions: New amlodipine [Norvasc] 5 mg Tablet 10 mg PO QAM Qty: 30 RF: 1 acetaminophen [Mapap (acetaminophen)] 325 mg Tablet 650 mg PO Q4H PRN (Reason: Pain) Qty: 50 RF: 0 lisinopril 20 mg Tablet 20 mg PO QAM 30 Days Qty: 30 RF: 1 Continued aspirin [Aspirin Low Dose] 81 mg Tablet,Delayed Release (Dr/Ec) 81 mg PO DAILY RF: 0 Discharge Orders: Discharge Order (Routine); Ordered 12/19/19 Ordered By: Renée Rico Admission Data Admit Date/Time: 12/18/19 10:44 Attending Provider: Renée Rico I. Admit Provider: Rob Amezcua Primary Care Provider: PCP,NO Other Providers: Diallo Green ; Rob Amezcua ; Missy,David W. Other Interventions: Discharge Summary Assessment (RN) Last Done: 12/19/19 16:35 DC Date/Time DO NOT enter until pt leaves facility: 12/19/19 17:00
--- NOTE | 2019-12-19 16:20 | Electrocardiogram Report ---
Test Reason : Blood Pressure : / mmHG Vent. Rate : 063 BPM Atrial Rate : 063 BPM P-R Int : 182 ms QRS Dur : 092 ms QT Int : 414 ms P-R-T Axes : 045 -41 005 degrees QTc Int : 423 ms Normal sinus rhythm Left axis deviation Voltage criteria for left ventricular hypertrophy Abnormal ECG When compared with ECG of 07-DEC-2014 13:20, QRS axis Shifted left Confirmed by David Louis ([id number]) on 12/19/2019 4:20:17 PM Referred By: REFERRED SELF Confirmed By:David Louis
--- NOTE | 2019-12-20 05:59 | Electrocardiogram Report ---
Test Reason : Blood Pressure : / mmHG Vent. Rate : 055 BPM Atrial Rate : 055 BPM P-R Int : 176 ms QRS Dur : 090 ms QT Int : 452 ms P-R-T Axes : 044 -38 029 degrees QTc Int : 432 ms Sinus bradycardia Left axis deviation Minimal voltage criteria for LVH, may be normal variant Abnormal ECG When compared with ECG of 18-DEC-2019 08:33, No significant change was found Confirmed by David Louis ([id number]) on 12/20/2019 5:59:12 AM Referred By: REFERRED SELF Confirmed By:David Louis
== END 2019-12-19 17:00 | disposition home or self-care (01) | DRG 287 ==
LOC: ED 08:22 → SUATTDRO 10:44 → 1E 10:44 → 2S 18:40